=== PATIENT | female | born 1975 | race Caucasian/White ===

== ENCOUNTER 2016-06-27 08:52 | Emergency (ER) | payer BC, MEDICARE | END 2016-06-27 09:37 | disposition home or self-care (01) | LOC: ER 08:52 | DX: M54.5 Low back pain (principal); F41.9 Anxiety disorder, unspecified; Z79.899 Other long term (current) drug therapy; Z88.1 Allergy status to other antibiotic agents; Z88.7 Allergy status to serum and vaccine; X50.0XXA Overexertion from strenuous movement or load, initial encounter ==